=== PATIENT | male | born 1970 | race Caucasian/White ===

== ENCOUNTER 2016-12-18 20:18 | Emergency (ER) | payer OTHER ==
--- NOTE | 2016-12-18 21:34 | PROVIDER DOCUMENTATION ---
HPI-Musculoskeletal Pain/Inj - GENERAL Chief Complaint: Extremity Injury Stated Complaint: LT CALF PAIN Time Seen by Provider: 12/18/16 21:30 Source: patient - HX OF PRESENT ILLNESS-MUSKULOSKELTAL Nature of Presenting Problem: 46 y/o WM c/o L calf pain x 2 hours. Pt states was playing basketball when he felt a pop and pain in his L calf. Reports can't bear weight on it, as it is too painful. Denies any other sxs at this time, including numbness/tingling. Review of Systems - Adult - REVIEW OF SYSTEMS - ADULT Constitutional: reports: no symptoms reported. denies: chills, fever Eyes: reports: no symptoms reported. denies: blurred vision, double vision Ears, Nose, Mouth & Throat: reports: no symptoms reported. denies: ear pain, nose pain Cardiovascular: reports: no symptoms reported. denies: chest pain, palpitations Respiratory: reports: no symptoms reported. denies: cough, shortness of breath Gastrointestinal: reports: no symptoms reported. denies: nausea, vomiting Genitourinary: reports: no symptoms reported. denies: dysuria, frequency Musculoskeletal: reports: see HPI, muscle aches. denies: joint pain, joint swelling, neck pain Integumentary: reports: no symptoms reported. denies: nail changes, rash Neurological: reports: no symptoms reported. denies: numbness, paresthesia Psychiatric: reports: no symptoms reported Endocrine: reports: no symptoms reported. denies: cold intolerance, heat intolerance Hematologic/Lymphatic: reports: no symptoms reported. denies: easy bruising, prolonged bleeding Allergic/Immunologic: reports: no symptoms reported All Other Systems: Reviewed and Negative Past History - Adult - PAST MEDICAL HISTORY-ADULT Review of Records: reports: Nursing Assessment Review, Medications Reviewed - SOCIAL HISTORY Smoking: denies Alcohol Use Frequency: never Physical Exam-Injury Related - Physical Exam-Injury Related Initial Vital Signs Reviewed: Yes General Appearance: alert, mild distress Eyes: pink conjunctivae Head, Ears, Nose, Mouth & Throat: normocephalic/atraumatic, moist mucous membranes Neck: normal inspection Respiratory: no respiratory distress Cardiovascular: normal peripheral pulses, regular rate, rhythm. negative: bradycardia, tachycardia Peripheral Pulses: dorsalis-pedis (R): 1+, dorsalis-pedis (L): 1+ Extremity: normal capillary refill, calf tenderness (L side with pain to gastroc muscle.), swelling (L calf>R), tenderness (L calf), other (Pt able to dorsiflex L foot; foot dorsiflex with calf squeeze.). negative: abnormal NV exam Integumentary: normal color, warm/dry Neurologic: negative: aphasia, sensory deficit Psych/Mental Status: normal mood/affect, normal thought content, normal thought process, oriented x 3 Progress - PLAN OF CARE/RESULTS Progress/Plan/Lab Results: Orders Category Date Time Status Crutches DIRECTED Care 12/18/16 21:40 Active Hydrocodone/APAP 7.5 mg/325 mg [[place]-7.5] Med 12/18/16 21:40 Discontinued 1 each PO NOW ONE Hydromorphone [Dilaudid] Med 12/18/16 21:41 Discontinued 1 mg IM NOW ONE Ondansetron Odt [Zofran Odt] Med 12/18/16 21:40 Discontinued 4 mg PO NOW ONE Vital Signs Temp Pulse Resp BP Pulse Ox 12/18/16 22:43 65 19 121/81 99 12/18/16 20:25 98.4 F 73 16 143/81 100 Hydrocodone/APAP 7.5 mg/325 mg [[place]-7.5] 1 each PO Q6H PRN PRN #20 tablet Promethazine [Phenergan] 25 mg PO Q6H PRN PRN #20 tablet 12/18/16 MYALGIA (12/18/16) PAIN IN LEFT LOWER LEG (12/18/16) STRAIN OF MUSC/TEND AT LOWER LEG LEVEL, LEFT LEG, INIT (12/18/16) EXPOSURE TO OTHER SPECIFIED FACTORS, INITIAL ENCOUNTER (12/18/16) Discussed pt with Dr. Llanos; he agreed with d/c home. Departure - Departure Time of Disposition Order: 21:40 DIAGNOSIS: Gastrocnemius muscle tear Qualifiers: Encounter type: initial encounter Laterality: left Qualified Code(s): S86.812A - Strain of other muscle(s) and tendon(s) at lower leg level, left leg, initial encounter Disposition: HOME 01 Certified Medical Emergency: Emergent Condition: Stable Additional Instructions: No weight bearing until cleared by orthopedist. Ice or heat calf as needed. Take medications for pain relief. Return if symptoms get worse. ED Follow Up Instructions: You have been treated by a care provider in the Emergency Department. These instructions are being provided to you so you can have an understanding of how to care for yourself upon discharge. Upon discharge from the Emergency Department, you are responsible for making arrangements for follow-up care by a physician of your choice. Take all prescribed medications as directed. Return to the Emergency Department immediately for any new or worsening symptoms. You may call the Physician Referral phone number at [phone] to obtain a list of Physicians who are taking new patients. Prescriptions: Hydrocodone/APAP 7.5 mg/325 mg [[place]-7.5] 1 each PO Q6H PRN PRN #20 tablet PRN Reason: Pain Promethazine [Phenergan] 25 mg PO Q6H PRN PRN #20 tablet PRN Reason: Nausea Referrals: Benson Lim [Primary Care Provider] - Judy Schwarz MD [STAFF PHYSICIAN] - Forms: Return to School/Parent Work Instructions: Medial Head Gastrocnemius Tear (Tennis Leg) with Rehab-SportsMed Attestation - Physician/ SUNDAY Attestation Patient care was provided by Advanced Practice Provider:: Yes Advanced Practice Provider:: Disha Garcia Advanced Practice Provider documentation review:: The Mid-level provider documentation, treatment plan and medical decision making was reviewed by the physician who agrees with all treatment and medical decision making by the MLP.
[2016-12-18] MEDS ORDERED: NORCO-7.5 PO ONE (21:40)
[2016-12-18] MEDS ORDERED: ZOFRAN ODT PO ONE (21:40)
[2016-12-18] MEDS ORDERED: DILAUDID IM ONE (21:41)
[2016-12-18 22:44] VITALS: BP 121/81
== END 2016-12-18 22:50 | disposition home or self-care (01) ==
LOC: ED 20:18
DX: S86.812A Strain of other muscle(s) and tendon(s) at lower leg level, left leg, initial encounter (principal); M79.662 Pain in left lower leg; M79.1 Myalgia; X58.XXXA Exposure to other specified factors, initial encounter
CPT/HCPCS: 96372; J1170